=== PATIENT | female | born 1940 | race Caucasian/White ===

== ENCOUNTER 2016-07-07 12:32 | Inpatient (IN) | payer OTHER ==
--- NOTE | 2016-07-07 13:04 | EDPHY ---
HPI/HX/ROS/PE/MDM Narrative: CHIEF COMPLAINT: Hip pain. HISTORY OF PRESENT ILLNESS: The patient is a 75-year-old female who arrived via EMS, presenting with left hip pain that began after a mechanical fall today. The patient missed a down sloping curb and fell on her left side. She has an abrasion to her left knee and complains of left hip pain. She is pain free when lying still. Pain becomes severe with movement. The patient did not ambulate after the fall. She denies loss consciousness. The patient takes a daily Aspirin. She denies fever, chills, chest pain, shortness of breath, palpitations , vomiting, diarrhea, urinary complaints, headache, lightheadedness. REVIEW OF SYSTEMS: Aside from elements discussed in the HPI, a comprehensive 10-point review of systems was reviewed and is negative. PAST MEDICAL HISTORY: GERD, Hyperlipidemia, Hypothyroid. [place] patient. SOCIAL HISTORY: Cigarette smoker. No alcohol use. Lives at home alone. VITAL SIGNS: Reviewed by me; see NN. GENERAL: Well-developed, well-nourished, in no acute distress. HEENT: Head: Atraumatic, normocephalic. Face: Atraumatic. PERRL, EOMI, no nystagmus. Oropharynx: No trauma, normal occlusion. Neck: Nontender to palpation, no pain with range of motion, no adenopathy. CHEST: Nontender, no subcutaneous air palpable. LUNGS: Clear to auscultation bilaterally, breath sounds are equal. CARDIAC: Regular rate and rhythm, no rubs, murmurs or gallops. ABDOMEN: Soft, nontender, nondistended, bowel sounds normal. BACK: No CVA tenderness, no spinal tenderness. EXTREMITIES: No obvious deformity, significant pain with movement of the hip including internal external rotation. Patient reports the pain is over the lateral hip as well as across the inguinal canal. Abrasion across left knee. PULSES: 2+ and equal throughout. NEURO: Alert and oriented x3, cranial nerves are intact throughout, normal motor , normal sensation. SKIN: Warm and dry, no rash. Portions of this note were transcribed by a medical chemist. I personally performed a history, physical exam, medical decision making, and confirmed accuracy of information the transcribed note. ED Course: The patient is a healthy 75-year-old female who presents with left hip pain after a mechanical fall. On exam the patient has pain with range of motion of her left hip. I offered pain medication, but the patient declines. She states she is only in pain when she has to move her left leg. Head is atraumatic. Plan for hip x-ray to evaluate for fracture. The patient takes a daily Aspirin. I viewed the images of the hip x-ray myself on the PACS system. Radiology report is negative for fracture. See the full radiology report in the imaging section. I discussed this with the patient. She is very uncomfortable with slight movement. Plan for IV Fentanyl. I suspect occult fracture, I ordered a pelvis CT for further imaging. CT of the pelvis was obtained. I viewed the images myself on the PACS system. Patient has a subtle nondisplaced fracture involving a combination of the intertrochanteric, basal neckl. See the full radiology report in the imaging section. 3:55 p.m.: I spoke to Dr. Rodriguez with Orthopedic surgery. He reviewed the patient's films and recommends surgical intervention. I spoke to [place]; [facility] states patient should be admitted to [facility]. Dr. Rodriguez was notified, he plans to take the patient to operating room soon. Patient's course was discussed with Dr. Iban Feliciano, admitting hospitalist. MDM: Differential diagnosis of this patient's trauma was considered including but not limited to intracranial injury, long bone and pelvic bone fracture, spinal injury, intrathoracic injury, extremity injury, intra-abdominal injury, lacerations, abrasions, and contusions. - Data Points Imaging Results: Imaging Impressions Hip X-Ray 07/07/16 13:04 Impression: Negative. No acute fracture. Pelvis CT 07/07/16 13:58 Impression: Acute nondisplaced left intertrochanteric fracture. Findings discussed with Emergency Department physician, Catrina Mckeon MD at 1549 hours July 07, 2016. Laboratory Results: Laboratory Results 07/07/16 14:30 07/07/16 14:30 07/07/16 07/07/16 14:30 14:30 WBC 16.18 10^3/uL H 10^3/uL (3.80-9.50) RBC 4.74 10^6/uL 10^6/uL (4.18-5.33) Hgb 14.6 g/dL g/dL (12.6-16.3) Hct 42.1 % % (38.0-47.0) MCV 88.8 fL fL (81.5-99.8) MCH 30.8 pg pg (27.9-34.1) MCHC 34.7 g/dL g/dL (32.4-36.7) RDW 13.5 % % (11.5-15.2) Plt Count 257 10^3/uL 10^3/uL (150-400) MPV 8.9 fL fL (8.7-11.7) Neut % (Auto) 84.5 % H % (39.3-74.2) Lymph % (Auto) 9.6 % L % (15.0-45.0) Burt % (Auto) 4.0 % L % (4.5-13.0) Eos % (Auto) 0.6 % % (0.6-7.6) Baso % (Auto) 0.4 % % (0.3-1.7) Nucleat RBC Rel Count 0.0 % % (0.0-0.2) Absolute Neuts (auto) 13.68 10^3/uL H 10^3/uL (1.70-6.50) Absolute Lymphs (auto) 1.56 10^3/uL 10^3/uL (1.00-3.00) Absolute Monos (auto) 0.64 10^3/uL 10^3/uL (0.30-0.80) Absolute Eos (auto) 0.09 10^3/uL 10^3/uL (0.03-0.40) Absolute Basos (auto) 0.07 10^3/uL 10^3/uL (0.02-0.10) Absolute Nucleated RBC 0.00 10^3/uL 10^3/uL (0-0.01) Immature Gran % 0.9 % % (0.0-1.1) Immature Gran # 0.14 10^3/uL H 10^3/uL (0.00-0.10) Sodium 138 mEq/L mEq/L (134-144) Potassium 4.3 mEq/L mEq/L (3.5-5.2) Chloride 103 mEq/L mEq/L (97-110) Carbon Dioxide 27 mEq/l mEq/l (22-31) Anion Gap 8 mEq/L mEq/L (8-16) BUN 10 mg/dL mg/dL (7-23) Creatinine 0.7 mg/dL mg/dL (0.6-1.0) Estimated GFR > 60 Glucose 115 mg/dL H mg/dL (70-100) Calcium 9.5 mg/dL mg/dL (8.5-10.4) Medications Given: Discontinued Medications Fentanyl (Sublimaze) 50 mcg IVP EDNOW ONE Stop: 07/07/16 14:07 Last Admin: 07/07/16 14:51 Dose: 50 mcg Fentanyl (Sublimaze) 50 mcg IVP EDNOW ONE Stop: 07/07/16 15:40 Last Admin: 07/07/16 15:57 Dose: 50 mcg Sodium Chloride (Ns) 500 mls @ 0 mls/hr IV ONCE ONE PRN Reason: As Directed Stop: 07/07/16 14:06 Last Admin: 07/07/16 14:51 Dose: 500 mls General Time Seen by Provider: 07/07/16 12:57 Initial Vital Signs: Initial Vital Signs Temperature (C) 37.1 C 07/07/16 12:32 Heart Rate 88 07/07/16 12:32 Respiratory Rate 20 07/07/16 12:32 Blood Pressure 145/81 H 07/07/16 12:32 O2 Sat (%) 94 07/07/16 12:32 O2 Delivery Mode Room Air Allergies/Adverse Reactions: No Known Allergies Allergy (Unverified 07/07/16 12:42) Home Medications: Medication Instructions Recorded Aspirin [Aspirin 81mg (*)] 81 mg PO HS 07/07/16 Calcium Carbonate [Tums 500MG (*)] 1,000 mg PO HS PRN 07/07/16 Cholecalciferol Vit D3 [Vitamin D3 1,000 units PO DAILY 07/07/16 (*)] Levothyroxine [Synthroid 75 mcg 75 mcg PO HS 07/07/16 (*)] Pantoprazole Sodium [Protonix 40mg 40 mg PO DAILY 07/07/16 (*)] Simvastatin [Zocor] 40 mg PO DAILY 07/07/16 Departure - Departure Dis[facility]: [facility] Acute Clinical Impression: Hip fracture Qualifiers: Encounter type: initial encounter Fracture type: closed Laterality: left Qualified Code(s): S72.002A - Fracture of unspecified part of neck of left femur , initial encounter for closed fracture Condition: Fair Report Scribed for: Catrina Mckeon Report Scribed by: Amy Julian Date of Report: 07/07/16 Time of Report: 13:04
[2016-07-07] MEDS ORDERED: NS 500 ML IV ONE (14:05)
[2016-07-07] MEDS ORDERED: fentaNYL 100 MCG/2 ML INJ IVP ONE ×3 (14:06→16:56)
[2016-07-07 14:41] LABS: % IMMATURE GRANULYOCYTES 0.9 % (0.0-1.1); ABSOLUTE IMMATURE GRANULOCYTES 0.14 10^3/uL (0.00-0.10); ADD DIFF? NO; ADD MORPH? NO; ADD SCAN? NO; ATYPICAL LYMPHOCYTE FLAG 0 (0-99); FRAGMENT RBC FLAG 0 (0-99); HEMATOCRIT 42.1 % (38.0-47.0); HEMOGLOBIN 14.6 g/dL (12.6-16.3); LEFT SHIFT FLG 0 (0-99); LIPEMIA HEMOLYSIS FLAG 90 (0-99); MEAN CELL HEMOGLOBIN 30.8 pg (27.9-34.1); MEAN CELL HEMOGLOBIN CONCENTR. 34.7 g/dL (32.4-36.7); MEAN CELL VOLUME 88.8 fL (81.5-99.8); MEAN PLATELET VOLUME 8.9 fL (8.7-11.7); PLATELET CLUMPS FLAG 0 (0-99); PLATELET COUNT 257 10^3/uL (150-400); RED BLOOD CELL COUNT 4.74 10^6/uL (4.18-5.33); RED CELL DISTRIBUTION WIDTH 13.5 % (11.5-15.2)
[2016-07-07 15:03] LABS: ANION GAP 8 mEq/L (8-16); CALCIUM 9.5 mg/dL (8.5-10.4); CARBON DIOXIDE 27 mEq/l (22-31); CHLORIDE 103 mEq/L (97-110); CREATININE 0.7 mg/dL (0.6-1.0); GLOMERULAR FILTRATION RATE > 60; GLUCOSE 115 mg/dL (70-100); POTASSIUM 4.3 mEq/L (3.5-5.2); SODIUM 138 mEq/L (134-144)
[2016-07-07] MEDS ORDERED: KETOROLAC 30 MG/1 ML SDV IVP ONE (16:56)
[2016-07-07] MEDS ORDERED: ONDANSETRON 4 MG/2 ML VIAL IVP PRN (17:15)
[2016-07-07] MEDS ORDERED: TEMAZEPAM 15 MG CAP PO PRN (17:15)
[2016-07-07] MEDS ORDERED: HYDROmorphONE/DILAUDID 1 MG/ML SYR IVP PRN (17:15)
[2016-07-07] MEDS ORDERED: ONDANSETRON DISINTEGRATING 4 MG TAB PO PRN (17:15)
[2016-07-07] MEDS ORDERED: CEFAZOLIN 1 GM/DEXTROSE/50 ML BAG IV ONE (18:13)
[2016-07-07] MEDS ORDERED: fentaNYL 100 MCG/2 ML INJ ONE ×2 (18:17→18:18)
[2016-07-07] MEDS ORDERED: PROPOFOL/EMULSION 500 MG/50 ML BOTTLE IV ONE (18:18)
--- NOTE | 2016-07-07 18:39 | GHP ---
[f rep st] HISTORY AND PHYSICAL DATE OF ADMISSION: 07/07/2016 CHIEF COMPLAINT: Fall. HISTORY OF PRESENT ILLNESS: This is a 75-year-old, relatively healthy, independent, who was at the car dealership today. She did notice that the curb sloped down. Landed on her left hip. She had i mmediate pain. She has been unable to bear weight on that leg since. She has sensation and motor i ntact in her foot. She did not have any syncope. She did not hit her head when she fell. She is able to ambulate and exercise. She is normally active. She does take an aspirin. She last ate at 11:30 this morning. She notes that she has had a significant tachycardic response to exercis e over the past 40 years. PAST MEDICAL/SURGICAL HISTORY: 1. Hyperlipidemia. 2. Hypothyroid. 3. GERD. MEDICATIONS: Please see medication reconciliation. ALLERGIES: None. FAMILY HISTORY: Her sister has breast cancer. SOCIAL HISTORY: She lives independently. Her less than a year ago. She does s moke. She does not drink. REVIEW OF SYSTEMS: A 10-point Review of Systems is conducted and is negative except per HPI. PHYSICAL EXAM: VITAL SIGNS: Blood pressure 128/70, heart rate 84, respiration rate 16, saturating 94% on room air. Temperature is 36.4. GENERAL: The patient is a pleasant female, who is comfortab le in no acute distress. HEENT: Shows her to be normocephalic, atraumatic. CARDIOVASCULAR: Shows a regular rate and rhythm. No murmurs, rubs, or gallops. PULMONARY: Shows lungs clear to auscult ation bilaterally. ABDOMEN: Soft, nontender, nondistended. SKIN: Shows no rash. : No Stevenson. NEUROLOGIC: Shows her to be alert and oriented x3. She is moving all extremities. PSYCHIATRIC: Shows normal mood and affect. EXTREMITIES: Shows her left extremity to be externally rotated and fo reshortened. She has a dorsalis pedis pulse. Motor is intact in her foot and sensation to light to uch is intact in her foot. LABS: White count is 16,000. Basic metabolic panel is unremarkable. DATA: 1. I discussed this with Dr. Mckeon in the emergency department. 2. I reviewed her CT of her pelvis, that shows an acute nondisplaced intertrochanteric fracture. IMPRESSION AND PLAN: 75-year-old female presents with a hip fracture after a mechanical fall. 1. Hip fracture: Dr. Rodriguez will take her to the operating room this evening. She can exert great er than 4 METS. She is low risk. Given her history of tachycardia, I will get an EKG. 2. Hyperlipidemia: Continue her Zocor. 3. Hypothyroid: Continue her Synthroid. 4. Gastroesophageal reflux disease: Continue her Protonix. 5. Venous thromboembolism risk: She is going to be high-risk after her surgery. I have ordered Lo venox for her tomorrow. 6. Code status: She would like to be full code. /[id number]/MODL
[2016-07-07] MEDS ORDERED: BUPIVACAINE 0.25% 30 ML SDV ONE (19:02)
[2016-07-07] MEDS ORDERED: SUGAMMADEX SODIUM 200 MG/2 ML VIAL IVP ONE (19:03)
--- NOTE | 2016-07-07 19:21 | POSTOPPROG ---
Post Op Note Date of Operation: 07/07/16 Surgeon: Chavo Rodriguez Anesthesia: GET(General Endotracheal) Pre-op Diagnosis: L pertrochanteric femur fx Post-op Diagnosis: same Procedure: L TFN Inf/Abcess present in the surg proc area at time of surgery?: No EBL: Minimal
[2016-07-07] MEDS ORDERED: D5W 1/2 NS W/ 20 KCl/L 1,000 ML IV SCH (19:30)
--- NOTE | 2016-07-07 19:58 | GCON ---
[f rep st] CONSULTATION DATE OF CONSULTATION: 07/07/2016 REASON FOR CONSULTATION: Left hip pain. HISTORY OF PRESENT ILLNESS: Patient is a 75-year-old limited community ambulator without assistive devices. She sustained a fall resulting in left hip pain. While radiographs were normal, CT scan w as obtained, which showed a nondisplaced fracture extending from the greater trochanter across the b asilar neck region. PHYSICAL EXAMINATION: She had tenderness to palpation in her groin pain. She had pain with flexion and extension of her hip. Distal neurovascular exam was intact. Leg lengths were equal. IMAGING: Was previously mentioned. ASSESSMENT: Left nondisplaced intertrochanteric femur fracture. PLAN: After thorough discussion with the patient regarding risk and benefit of operative and nonope rative treatment, the patient elected to pursue operative treatment consisting of intramedullary derek l fixation (TFN). This is to be scheduled pending operating room availability. /[id number]/MODL
--- NOTE | 2016-07-07 20:19 | GOP ---
[f rep st] OPERATIVE REPORT DATE OF OPERATION: 07/07/2016 SURGEON: Chavo Rodriguez MD ANESTHESIA: General. PREOPERATIVE DIAGNOSIS: Left peritrochanteric femur fracture. POSTOPERATIVE DIAGNOSIS: Left peritrochanteric femur fracture. PROCEDURE PERFORMED: 1. Intramedullary nail fixation, left peritrochanteric femur fracture (TFN). 2. Intraoperative use of fluoroscopy. FINDINGS: ESTIMATED BLOOD LOSS: Minimal. INDICATIONS: The patient is a 75-year-old, limited community ambulator without assistive devices wh o sustained a fall. Upon radiographic evaluation (CT), there was evidence of a nondisplaced peritro chanteric femur fracture. Based on concern over inability to ambulate, displacement, operative luis tment consisting of intramedullary fixation (TFN) was recommended. The patient acknowledged she und erstood the potential risks of the operation including but not limited to, bleeding, infection, neur ovascular damage, including loss of limb and function, malunion, nonunion, need for hardware removal , pain or functional limitations despite operative treatment, and anesthetic risks. She acknowledge d she understood the potential risks for the planned procedure, and postoperative plan well, and had all questions answered prior to surgery. She gave her consent for the operative procedure. DESCRIPTION OF PROCEDURE: The patient was brought to the operating room after IV antibiotics were a dministered. General anesthetic was administered. The patient was transferred to the radiolucent f racture table. Left leg was placed in a well-padded traction boot. The right leg was placed in a w ell-padded, well leg underwood. Fluoroscopic views were confirmed which confirmed anatomical alignment . The left thigh and hip were prepped and draped in standard sterile fashion. A longitudinal incis ion was made proximal to the greater trochanter. Dissection was carried through the fascia with alva ctrocautery unit. Blunt dissection was carried down to the tip of the greater trochanter. A guide pin from the trochanteric fixation nail was placed in the tip of the trochanter and position confirm ed fluoroscopically on AP and lateral views and felt to be optimal. The cannulated reamer was then utilized to create the hole for TFN placement. An 11 mm diameter short TFN was manually placed. Ut ilizing the aiming guide, a guide pin was placed in the central aspect of the femoral neck and posit ion confirmed fluoroscopically in AP and lateral views. After pre-drilling and appropriate length ( 90 mm) spiral blade was impacted into place. The blade was locked into the nail. Utilizing the aim ing guide, a distal locking screw was placed. Fluoroscopic views confirmed favorable hardware posit ion and anatomic alignment. Attention was directed towards closure. The deep fascia layer was closed with 2-0 Vicryl suture in interrupted fashion, subcutaneous tissue closed with 3-0 Vicryl suture in interrupted fashion, skin closed with skin barbara. 0.5% Marcaine without epinephrine was injected in the wound sites. The wo unds were dressed with sterile Adaptic, 4 x 4, and ABD. The patient tolerated the procedure well an d was taken to the recovery room, extubated, in stable condition postoperatively. All sponge, needl e, and instrument counts were reported as being correct. DRAINS: None. COMPLICATIONS: None. PLAN: The patient will be admitted for medical management. She will be weightbearing as tolerated on her operative extremity. /[id number]/MODL
[2016-07-07] MEDS: LEVOTHYROXINE 75 MCG TAB PO SCH (21:03)
[2016-07-08 05:18] LABS: % IMMATURE GRANULYOCYTES 0.7 % (0.0-1.1); ABSOLUTE IMMATURE GRANULOCYTES 0.09 10^3/uL (0.00-0.10); ADD DIFF? NO; ADD MORPH? NO; ADD SCAN? NO; ATYPICAL LYMPHOCYTE FLAG 0 (0-99); FRAGMENT RBC FLAG 0 (0-99); HEMATOCRIT 37.7 % (38.0-47.0); HEMOGLOBIN 12.8 g/dL (12.6-16.3); LEFT SHIFT FLG 0 (0-99); LIPEMIA HEMOLYSIS FLAG 90 (0-99); MEAN CELL HEMOGLOBIN 30.6 pg (27.9-34.1); MEAN CELL VOLUME 90.2 fL (81.5-99.8); MEAN PLATELET VOLUME 9.8 fL (8.7-11.7); PLATELET CLUMPS FLAG 0 (0-99); PLATELET COUNT 207 10^3/uL (150-400); RED BLOOD CELL COUNT 4.18 10^6/uL (4.18-5.33); RED CELL DISTRIBUTION WIDTH 13.3 % (11.5-15.2)
--- NOTE | 2016-07-08 05:46 | SOAPPROG ---
SOAP Progress Note Assessment/Plan: Assessment: S/P L TFN Hip pain markedly improved compared to pre-op Marty po L thigh dressing intact, No D/C Distal NVI No pain with hip ROM Plan: OOB/PT OK for D/C from ortho standpoint when medically ready Pt. wishes to go home with friend F/U 2 wks. 07/08/16 05:44 Objective: Vital Signs Temp Pulse Resp BP Pulse Ox 36.4 C 79 16 112/55 L 97 07/08/16 04:00 07/08/16 04:00 07/08/16 04:00 07/08/16 04:00 07/08/16 04:00 Laboratory Results 07/08/16 04:35 07/06/16 07/07/16 07/08/16 05:59 05:59 05:59 Intake Total 2454 Output Total 200 Balance 2254 ICD10 Worksheet Patient Problems: Problems Problem Status Onset Hip fracture Acute
--- NOTE | 2016-07-08 05:48 | PDIAF ---
- Diagnosis Code Status: Full Code - Medication Management Discharge Medications: Medications to Continue on Transfer Aspirin [Aspirin 81mg (*)] 81 mg PO HS 07/07/16 [Last Taken 07/06/16] Calcium Carbonate [Tums 500MG (*)] 1,000 mg PO HS PRN 07/07/16 [Last Taken Unknown] Cholecalciferol Vit D3 [Vitamin D3 (*)] 1,000 units PO DAILY 07/07/16 [Last Taken 07/07/16] Levothyroxine [Synthroid 75 mcg (*)] 75 mcg PO HS 07/07/16 [Last Taken 07/06/16] Pantoprazole Sodium [Protonix 40mg (*)] 40 mg PO DAILY 07/07/16 [Last Taken 02/12] Simvastatin [Zocor] 40 mg PO DAILY 07/07/16 [Last Taken 07/07/16] Discharge Medications: Refer to the Discharge Home Medication list for PRN reason. - Orders Wound Care Instructions: Keep dressing clean, dry, intact Sutures/[place] Site: will remove in office in 2 wks Activity/Weight Bearing Restrictions: WBAT - Follow Up Care Current Providers and Referrals: Patient,NotPresent [Unknown] - As per Instructions Chavo Rodriguez MD [Medical Doctor] -
[2016-07-08 06:02] LABS: ANION GAP 8 mEq/L (8-16); CARBON DIOXIDE 24 mEq/l (22-31); CHLORIDE 106 mEq/L (97-110); CREATININE 0.7 mg/dL (0.6-1.0); GLOMERULAR FILTRATION RATE > 60; GLUCOSE 178 mg/dL (70-100); POTASSIUM 4.3 mEq/L (3.5-5.2); SODIUM 138 mEq/L (134-144)
[2016-07-08] MEDS: ENOXAPARIN 40 MG/0.4 ML SYR SC SCH (08:26)
[2016-07-08] MEDS: PANTOPRAZOLE SODIUM 40 MG TAB PO SCH (08:27)
[2016-07-08] MEDS: ACETAMINOPHEN 325 MG TAB PO PRN ×2 (08:27→14:41)
[2016-07-08] MEDS: ATORVASTATIN CALCIUM 20 MG TAB PO SCH (08:27)
[2016-07-08] MEDS: oxyCODONE IR 5 MG TAB PO PRN ×2 (11:34→14:41)
--- NOTE | 2016-07-08 14:19 | HOSPPROG ---
Hospitalist Progress Note Assessment/Plan: 75y female with hip pain after mechanical fall. This is my first encounter with this pt. Chart reviewed. #L hip fx POD #1 doing well #Pain controlled #Hypothryroid cont meds #DVT proph lovenox #Leukocytosis acute response better #Dispo unclear cont PT/OT eval [facility] a safe discharge consider rehab pending PT/OT recs Subjective: Up in chair. Tired. No pain currently. No other specific issues. Objective: Vital Signs Temp Pulse Resp BP Pulse Ox 37.2 C 86 16 113/57 L 91 L 07/08/16 11:36 07/08/16 11:36 07/08/16 11:36 07/08/16 11:36 07/08/16 11:36 Laboratory Results 07/08/16 04:35 07/08/16 04:35 07/07/16 07/08/16 07/09/16 05:59 05:59 05:59 Intake Total 3104 400 Output Total 1400 Balance 1704 400 - Physical Exam Constitutional: no apparent distress, appears nourished, not in pain Eyes: PERRL, anicteric sclera, EOMI Ears, Nose, Mouth, Throat: moist mucous membranes, hearing normal, ears appear normal Cardiovascular: regular rate and rhythym, No JVD, No edema Respiratory: no respiratory distress, no rales or rhonchi, reduced air movement Gastrointestinal: normoactive bowel sounds, No tenderness, No ascites Skin: warm, normal color, No erythema Musculoskeletal: pain with ROM, muscular tenderness, abnormal gait, generalized weakness Neurologic: AAOx3 Psychiatric: interacting appropriately, not anxious, not encephalopathic ICD10 Worksheet Patient Problems: Problems Problem Status Onset Hip fracture Acute
[2016-07-08] MEDS: LEVOTHYROXINE 75 MCG TAB PO SCH (19:55)
[2016-07-09] MEDS: oxyCODONE IR 5 MG TAB PO PRN ×4 (00:24→18:44)
[2016-07-09] MEDS: ACETAMINOPHEN 325 MG TAB PO PRN ×4 (00:24→18:44)
--- NOTE | 2016-07-09 05:56 | SOAPPROG ---
SOAP Progress Note Assessment/Plan: Assessment: S/P L TFN Hip pain markedly improved compared to pre-op Marty po L thigh dressing intact, No D/C Distal NVI No pain with hip ROM Plan: OOB/PT OK for D/C from ortho standpoint when medically ready Pt. wishes to go home with friend F/U 2 wks. 07/08/16 05:44 07/09/16 05:55 Pin minimal Marty diet Walking to bathroom Dressing intact no pain with hip ROM OK for D/C from ortho standpoint Objective: Vital Signs Temp Pulse Resp BP Pulse Ox 37.2 C 86 16 117/56 L 95 07/09/16 00:00 07/09/16 00:00 07/09/16 00:00 07/09/16 00:00 07/09/16 00:00 Laboratory Results 07/08/16 04:35 07/08/16 04:35 07/07/16 07/08/16 07/09/16 05:59 05:59 05:59 Intake Total 1289 3210 Output Total 1400 650 Balance 1704 1445 ICD10 Worksheet Patient Problems: Problems Problem Status Onset Hip fracture Acute
[2016-07-09] MEDS: ENOXAPARIN 40 MG/0.4 ML SYR SC SCH (09:20)
[2016-07-09] MEDS: ATORVASTATIN CALCIUM 20 MG TAB PO SCH (09:20)
[2016-07-09] MEDS: PANTOPRAZOLE SODIUM 40 MG TAB PO SCH (09:20)
--- NOTE | 2016-07-09 15:15 | HOSPPROG ---
Hospitalist Progress Note Assessment/Plan: 75y female with hip pain after mechanical fall. #L hip fx POD #2 doing well #Pain controlled #Hypothryroid cont meds #DVT proph lovenox #Leukocytosis acute response better #Dispo unclear, [facility] cont PT/OT eval Subjective: Up to the bathroom. Still slow moving. Having some pain. Objective: Vital Signs Temp Pulse Resp BP Pulse Ox 36.9 C 79 18 108/45 L 95 07/09/16 07:43 07/09/16 07:43 07/09/16 07:43 07/09/16 07:43 07/09/16 07:43 Laboratory Results 07/08/16 04:35 07/08/16 04:35 07/08/16 07/09/16 07/10/16 05:59 05:59 05:59 Intake Total 3104 2099 Output Total 7421 654 3364 Balance 1704 1449 -1900 - Physical Exam Constitutional: no apparent distress, appears nourished, uncomfortable Eyes: PERRL, anicteric sclera, EOMI Ears, Nose, Mouth, Throat: moist mucous membranes, hearing normal, ears appear normal Cardiovascular: No JVD, No tachycardia, No edema Respiratory: no respiratory distress, reduced air movement Gastrointestinal: normoactive bowel sounds, No ascites Skin: warm, normal color, No erythema Musculoskeletal: muscular tenderness, abnormal gait, generalized weakness Neurologic: AAOx3 Psychiatric: interacting appropriately, not anxious, not encephalopathic ICD10 Worksheet Patient Problems: Problems Problem Status Onset Hip fracture Acute
[2016-07-09] MEDS: LEVOTHYROXINE 75 MCG TAB PO SCH (20:35)
[2016-07-10] MEDS: ACETAMINOPHEN 325 MG TAB PO PRN ×3 (00:16→12:03)
[2016-07-10] MEDS: oxyCODONE IR 5 MG TAB PO PRN ×2 (07:30→12:02)
[2016-07-10] MEDS: ATORVASTATIN CALCIUM 20 MG TAB PO SCH (07:32)
[2016-07-10] MEDS: ENOXAPARIN 40 MG/0.4 ML SYR SC SCH (07:32)
[2016-07-10] MEDS: PANTOPRAZOLE SODIUM 40 MG TAB PO SCH (07:32)
[2016-07-10 07:46] VITALS: BP 115/64; PULSE 75; RESP 18; TEMP 98.7; O2SAT 97
--- NOTE | 2016-07-10 11:11 | PDIAF ---
- Diagnosis Diagnosis: hip fracture Code Status: Full Code - Medication Management Discharge Medications: Medications to Continue on Transfer Aspirin [Aspirin 81mg (*)] 81 mg PO HS 07/07/16 [Last Taken 07/06/16] Calcium Carbonate [Tums 500MG (*)] 1,000 mg PO HS PRN 07/07/16 [Last Taken Unknown] Cholecalciferol Vit D3 [Vitamin D3 (*)] 1,000 units PO DAILY 07/07/16 [Last Taken 07/07/16] Levothyroxine [Synthroid 75 mcg (*)] 75 mcg PO HS 07/07/16 [Last Taken 07/06/16] Pantoprazole Sodium [Protonix 40mg (*)] 40 mg PO DAILY 07/07/16 [Last Taken 02/12] Simvastatin [Zocor] 40 mg PO DAILY 07/07/16 [Last Taken 07/07/16] Acetaminophen [Tylenol 325mg (*)] 650 mg PO Q4HRS PRN #0 tab 07/10/16 [Last Taken Unknown] oxyCODONE IR [Oxycodone Ir (*)] 5 - 10 mg PO Q3HRS PRN #20 tab 07/10/16 [Last Taken Unknown] Discharge Medications: Refer to the Discharge Home Medication list for PRN reason. PICC Care - Routine: N/A - Orders Services needed: Home Care, Physical Therapy, Occupational Therapy Home Care Face to Face: I certify that this patient was under my care and that I had the required [id number] encounter meeting the encounter requirements on the discharge day. My findings support the fact that the patient is homebound as defined in CMS Chapter 7 Medicare Benefits Manual 30.1.1, The condition of the patient is such that there exists a normal inability to leave home and consequently, leaving home would require a considerable and taxing effort. Diet Recommendation: no restrictions on diet Wound Care Instructions: Keep dressing clean, dry, intact Sutures/Alf Site: will remove in office in 2 wks Activity/Weight Bearing Restrictions: WBAT - Follow Up Care Current Providers and Referrals: Chavo Rodriguez MD [Medical Doctor] - Patient,NotPresent [Unknown] - As per Instructions
--- NOTE | 2016-07-10 13:13 | GDS ---
[f rep st] DISCHARGE SUMMARY DISCHARGE DIAGNOSES: 1. Left hip fracture. 2. Pain. 3. History of hypothyroidism. 4. Leukocytosis. CONSULTATIONS: Dr. Rodriguez of Orthopedics. PROCEDURES: 1. CT of the pelvis. 2. Nail fixation of the left femur fracture. PHYSICAL EXAM: GENERAL: The patient is alert. VITAL SIGNS: Afebrile at 37.1. Pulse is 75. Respiratory rate is 18. Blood pressure is 115/64. She is saturating greater than 90% on room air. I have seen and evaluated the patient on the day of discharge. HOSPITAL COURSE: The patient is a 75-year-old female who suffered a mechanical fall and developed left-sided hip pain. She was evaluated and diagnosed with: 1. Left femur fracture. During this hospitalization, she received a consultation from Dr. Rodriguez of Orthopedics. Surgical intervention was performed with a nailing fixation of the left femur. She responded well to the surgical intervention and has been evaluated by Physical Therapy and Occupational Therapy. Her pain is well controlled and she has been cleared to be discharged home to her sister's house with home health care. A Lovenox prescription has been provided for DVT prophylaxis but due to cost the patient will not continue the Lovenox. She will take a 325mg PO Aspirin. She has been educated at length regarding the risk for DVT. 2. Pain. This is well controlled. 3. Hypothyroidism. Continue previously prescribed home medications. 4. Leukocytosis. This is an acute response to the fracture. DISPOSITION: The patient will be discharged home with home health care to her sister's house. She will follow up in the outpatient setting with Dr. Rodriguez in 2 weeks as well as her primary care physician. There are no pending studies. DISCHARGE MEDICATIONS: I have provided her a prescription for Lovenox 40 mg subcu daily as well as oxycodone IR. I have not discontinued the patient's previously prescribed home medications to the best of my knowledge. /[id number]/MODL MTDD
== END 2016-07-10 13:47 | disposition home health service (06) | DRG 482 ==
LOC: F3N 20:45
PROVIDERS: ADMIT Student in an Organized Health Care Education/Training Program; ATTEND Student in an Organized Health Care Education/Training Program
PROC: 0QH706Z Insertion of Intramedullary Internal Fixation Device into Left Upper Femur, Open Approach (ICD-10-PCS; principal; 2016-07-07 18:00)
DX: S72.141A Displaced intertrochanteric fracture of right femur, initial encounter for closed fracture (principal); W01.0XXA Fall on same level from slipping, tripping and stumbling without subsequent striking against object, initial encounter; Y92.89 Other specified places as the place of occurrence of the external cause; K21.9 Gastro-esophageal reflux disease without esophagitis; E78.5 Hyperlipidemia, unspecified; E03.9 Hypothyroidism, unspecified; Z79.82 Long term (current) use of aspirin; F17.210 Nicotine dependence, cigarettes, uncomplicated
CPT/HCPCS: 96374; 97116-GP; 97161-GP; 97165-GO; 97530-GP; 97535-GO; C1713; C1769; G8987-GO-CJ; G8988-GO-CI; J0690; J1650; J1885; J2704; J3010